=== PATIENT | male | born 1980 | race Caucasian/White ===

== ENCOUNTER → 2017-09-03 19:00 | Outpatient (CLI) | payer OTHER | END | disposition home or self-care (01) | LOC: RAD 19:00 | DX: M54.5 Low back pain (principal); M54.6 Pain in thoracic spine; M25.552 Pain in left hip ==

== ENCOUNTER → 2017-09-04 | Emergency (ER) | payer OTHER ==
[~2017-09-04] VITALS: Ht 170.2 cm; Wt 73.5 kg
== END | disposition left against medical advice (07) ==
LOC: ER 16:17
DX: M54.5 Low back pain (principal); G89.11 Acute pain due to trauma; S30.0XXS Contusion of lower back and pelvis, sequela; S30.1XXA Contusion of abdominal wall, initial encounter; W22.8XXS Striking against or struck by other objects, sequela